=== PATIENT | female | born 1960 | race American Indian/Alaskan Native ===

== ENCOUNTER 2018-01-08 06:59 | Day surgery (SDC) | payer MEDICAID ==
[2018-01-08] VITALS (22 sets, daily range): BP systolic 87–131; BP diastolic 42–81
[~2018-01-08] VITALS: Ht 157.5 cm; Wt 101.5 kg
[2018-01-08] MEDS: normal saline 1000ml 1,000 ML IV SCH ×2 (07:30→13:07)
[2018-01-08] MEDS ORDERED: oxyCODONE IR 5mg (immed. release) tablet PO PRN (07:30)
[2018-01-08] MEDS ORDERED: normal saline 1000ml 1,000 ML IV SCH (07:30)
[2018-01-08] MEDS ORDERED: CYA500T SL (08:14)
[2018-01-08] MEDS ORDERED: SPIR25TA5 PO (08:14)
[2018-01-08] MEDS ORDERED: INSU100C4 SQ (08:14)
[2018-01-08] MEDS ORDERED: GABA-532 PO (08:14)
[2018-01-08] MEDS ORDERED: SITA25TA3 PO (08:14)
[2018-01-08] MEDS ORDERED: LISI10TA4 PO (08:14)
[2018-01-08] MEDS ORDERED: IPRA4AER IH (08:14)
[2018-01-08] MEDS ORDERED: AMIT-106 PO (08:14)
[2018-01-08] MEDS ORDERED: HYDR-4353 PO (08:14)
[2018-01-08] MEDS ORDERED: METF1000 PO (08:14)
[2018-01-08] MEDS ORDERED: DOCU100C41 PO (08:14)
[2018-01-08] MEDS ORDERED: INSU100I31 SQ (08:14)
[2018-01-08] MEDS ORDERED: EMPA10TA PO (08:14)
[2018-01-08] MEDS ORDERED: LIDOcaine 1% (10mg/ml)w/preservative injection 20ml MDV SQ ONE (08:20)
[2018-01-08] MEDS ORDERED: MIDAZolam 5mg/ml 2ml vial IV ONE (08:25)
[2018-01-08] MEDS ORDERED: fentaNYL/PF 50MCG/1 ML 2ML syringe IV ONE (08:25)
[2018-01-08 08:38] LABS: BASOPHILS % (AUTO) 0.4 % (0-1); EOSINOPHILS % (AUTO) 0.8 % (0-6); LYMPHOCYTES # (AUTO) 1.8 X10'3 (1.1-4.8); LYMPHOCYTES % (AUTO) 30.5 % (21-51); MEAN CORPUSCULAR HEMOGLOBIN 29.4 PG (27.0-31.0); MEAN CORPUSCULAR HGB CONC 32.4 % (33.0-36.5); MEAN CORPUSCULAR VOLUME 90.8 FL (78-98); MEAN PLATELET VOLUME 9.5 FL (7.4-10.4); MONOCYTES # (AUTO) 0.4 X10'3 (0-0.9); NEUTROPHILS # (AUTO) 3.7 X10'3 (1.8-7.7); NEUTROPHILS % (AUTO) 61.3 % (42-75); PRE OP HEMATOCRIT 44.1 % (35.0-45.0); PRE OP HEMOGLOBIN 14.3 g/dL (12.0-16.0); PRE OP PLATELET COUNT 146 X10'3 (140-440); RED BLOOD COUNT 4.85 X10'6 (4.20-5.60); RED CELL DISTRIBUTION WIDTH 14.6 % (11.5-14.5)
[2018-01-08 08:41] LABS: ALBUMIN 3.4 G/DL (3.4-5.0); ANION GAP 4 (8-16); BLOOD UREA NITROGEN 20 MG/DL (7-18); BUN/CREATININE RATIO 16.4 (6.6-38.0); CALCIUM 9.5 MG/DL (8.5-10.1); CHLORIDE 103 MMOL/L (99-107); CREATININE 1.22 MG/DL (0.40-0.90); GLUCOSE 121 MG/DL (70-104); POTASSIUM 4.7 MMOL/L (3.5-5.1); SODIUM 138 MMOL/L (135-145); TOTAL CARBON DIOXIDE 31.5 MMOL/L (24-32); eGFR 45 ML/MIN
[2018-01-08] MEDS ORDERED: gelatin sponge, absorbable (Gelfoam 12-7MM) sponge TP ONE (09:32)
== END 2018-01-08 14:05 | disposition home or self-care (01) ==
LOC: SSTAY O 06:59
PROVIDERS: ATTEND Radiology Diagnostic Radiology
DX: K76.89 Other specified diseases of liver (principal); E11.9 Type 2 diabetes mellitus without complications; I10 Essential (primary) hypertension; J44.9 Chronic obstructive pulmonary disease, unspecified; F10.21 Alcohol dependence, in remission; E66.9 Obesity, unspecified; F17.210 Nicotine dependence, cigarettes, uncomplicated; Z90.49 Acquired absence of other specified parts of digestive tract; Z68.41 Body mass index [BMI] 40.0-44.9, adult; Z86.19 Personal history of other infectious and parasitic diseases; Z88.2 Allergy status to sulfonamides; Z91.013 Allergy to seafood; Z96.641 Presence of right artificial hip joint; Z79.891 Long term (current) use of opiate analgesic; Z79.4 Long term (current) use of insulin; Z79.84 Long term (current) use of oral hypoglycemic drugs; Z79.899 Other long term (current) drug therapy; Z98.890 Other specified postprocedural states
CPT/HCPCS: 36415; 47000; 77012; 80048; 82948; 85025; 85610; J3010; J7030; J2001

== ENCOUNTER 2019-06-05 17:20 | Emergency (ER) | payer MEDICAID ==
[~2019-06-05] VITALS: Ht 160 cm; Wt 114.4 kg
[~2019-06-05 17:20] MED LIST: AMIT25TA9 PO; CYAN500T63 SL; DOCU100C41 PO; EMPA10TA PO; GABA-532 PO; HYDR-4353 PO; INSU100C4 SQ; INSU100I31 SQ; IPRA4AER IH; LISI10TA4 PO; METF1000 PO; SITA25TA3 PO; SPIR25TA5 PO
[2019-06-05 18:14] LABS: BASOPHILS % (AUTO) 0.6 % (0-1); EOSINOPHILS % (AUTO) 0.4 % (0-6); HEMATOCRIT 29.8 % (35.0-45.0); HEMOGLOBIN 9.9 g/dl (12.0-16.0); LYMPHOCYTES # (AUTO) 0.3 X10'3 (1.1-4.8); LYMPHOCYTES % (AUTO) 7.3 % (21-51); MEAN CORPUSCULAR HEMOGLOBIN 30.9 PG (27.0-31.0); MEAN CORPUSCULAR HGB CONC 33.2 g/dL (33.0-36.5); MEAN CORPUSCULAR VOLUME 92.8 FL (78-98); MEAN PLATELET VOLUME 8.8 FL (7.4-10.4); MONOCYTES # (AUTO) 0.4 X10'3 (0-0.9); MONOCYTES % (AUTO) 8.1 % (2-12); NEUTROPHILS # (AUTO) 3.9 X10'3 (1.8-7.7); NEUTROPHILS % (AUTO) 83.6 % (42-75); PLATELET COUNT 160 X10'3 (140-440); RED CELL DISTRIBUTION WIDTH 19.1 % (11.5-14.5); WHITE BLOOD COUNT 4.7 X10'3 (4.5-11.0)
[2019-06-05 18:28] LABS: ALANINE AMINOTRANSFERASE 34 U/L (12-78); ALBUMIN 2.1 G/DL (3.4-5.0); ALBUMIN/GLOBULIN RATIO 0.4 (1.1-1.5); ALKALINE PHOSPHATASE 214 IU/L (46-116); AMYLASE 37 U/L (25-115); ANION GAP 4 (8-16); ASPARTATE AMINO TRANSFERASE 119 U/L (10-37); BILIRUBIN,TOTAL 1.2 MG/DL (0.1-1.0); BLOOD UREA NITROGEN 21 MG/DL (7-18); BUN/CREATININE RATIO 17.2 (6.6-38.0); CALCIUM 8.8 MG/DL (8.5-10.1); CHLORIDE 102 MMOL/L (99-107); CREATININE 1.22 MG/DL (0.40-0.90); GLUCOSE 211 MG/DL (70-104); LIPASE 103 U/L (73-393); POTASSIUM 3.5 MMOL/L (3.5-5.1); SODIUM 137 MMOL/L (135-145); TOTAL CARBON DIOXIDE 30.9 MMOL/L (24-32); TOTAL PROTEIN 7.7 G/DL (6.4-8.2); eGFR 45 ML/MIN
[2019-06-05] MEDS ORDERED: furosemide 10 MG/1 ML 10ml inj IV ONE (20:20)
[2019-06-05] MEDS ORDERED: POTASSIUM BICARB 20meq eff tab 20 MEQ TABLET.EFF PO ONE (20:20)
[2019-06-05 20:27] LABS: ANISOCYTOSIS 2+; PLATELET ESTIMATE NORMAL
[2019-06-05 21:23] VITALS: BP 113/58
== END 2019-06-05 21:25 | disposition home or self-care (01) ==
LOC: ER 17:21
DX: K74.60 Unspecified cirrhosis of liver (principal); R18.8 Other ascites; E11.9 Type 2 diabetes mellitus without complications; F17.200 Nicotine dependence, unspecified, uncomplicated; Z90.49 Acquired absence of other specified parts of digestive tract; Z98.890 Other specified postprocedural states; Z72.89 Other problems related to lifestyle; Z86.19 Personal history of other infectious and parasitic diseases; Z88.2 Allergy status to sulfonamides; Z88.5 Allergy status to narcotic agent; Z79.4 Long term (current) use of insulin; Z79.899 Other long term (current) drug therapy; Z79.84 Long term (current) use of oral hypoglycemic drugs
CPT/HCPCS: 36415; 80053; 82150; 83690; 85025; 96374; 99283; J1940

== ENCOUNTER 2019-06-13 07:22 | Day surgery (SDC) | payer MEDICAID ==
[~2019-06-13] VITALS: Ht 157.5 cm; Wt 115.4 kg
[2019-06-13 07:45] VITALS: BP 129/77
[2019-06-13] MEDS ORDERED: normal saline 1000ml 1,000 ML IV PRN (07:45)
[2019-06-13] MEDS ORDERED: albumin 25% 100mL bottle x 1 IV PRN (07:45)
[2019-06-13] MEDS ORDERED: MORP15TA PO (08:00)
--- NOTE | 2019-06-13 09:29 | NUR ---
US done by Sterling Salmeron, NOA. Inadequate amount of fluid present to perform paracentesis. Pt educated on importance of performing daily weights and taking medication as prescribed by PCP. Pt instructed to contact PCP with worsening symptoms. All pt belongings gathered up, including backpack, purse, cane and cellphone. Pt transported by daughter via personal wheelchair to private vehicle.
== END 2019-06-13 09:15 | disposition home or self-care (01) ==
LOC: SSTAY O 07:22
PROVIDERS: ATTEND Radiology Vascular & Interventional Radiology
DX: R18.8 Other ascites (principal); E11.9 Type 2 diabetes mellitus without complications; I10 Essential (primary) hypertension; J44.9 Chronic obstructive pulmonary disease, unspecified; Z88.6 Allergy status to analgesic agent; Z88.2 Allergy status to sulfonamides; Z79.899 Other long term (current) drug therapy; Z79.4 Long term (current) use of insulin
CPT/HCPCS: 49083; 76705

== ENCOUNTER 2019-06-25 13:54 | Inpatient (IN) | payer MEDICAID ==
[~2019-06-25] VITALS: Ht 157.5 cm; Wt 106.2 kg
[~2019-06-25 13:54] MED LIST changes: -DOCU100C41 PO; -LISI10TA4 PO; -METF1000 PO; +MORP15TA PO; -SITA25TA3 PO
--- NOTE | 2019-06-25 14:09 | NUR ---
PT PLACED ON NASAL CANNULA 2 LITERS 02, PULSE OX INCREASED FROM 89% TO 99%, PROVIDER AT BEDSIDE TO EVAL PT
--- NOTE | 2019-06-25 14:28 | NUR ---
spoke to patients daughter rhona. pt has traveled to [place] in the last month. she finished her antibiotics for bronchitis. family noticed a decline in patients aloc over the last 2 days. she has had ongoing sob but stated it worsened over the last few days after they notied sats in the 70's. pt is currently taking chemo medications for liver cancer. daughters phone number [phone]
[2019-06-25 15:20] LABS: CLARITY,URINE CLEAR (Clear); COLOR,URINE STRAW (Yellow); GLUCOSE, URINE 500 mg/dl (Neg); KETONES,URINE NEGATIVE (Neg); LEUKOCYTE ESTERASE ,URINE NEGATIVE (Neg); NITRITES, URINE NEGATIVE (Neg); OCCULT BLOOD,URINE NEGATIVE (Neg); PROTEIN,URINE NEGATIVE (Neg); UROBILINOGEN,URINE 0.2 E.U/dL (0.2-1.0)
[2019-06-25 15:22] LABS: UA COLLECTION TYPE URINAL
[2019-06-25] MEDS ORDERED: furosemide 10 MG/1 ML 10ml inj IV ONE (15:30)
[2019-06-25] MEDS ORDERED: lactulose 20gm/30ml cup PO ONE (15:30)
[2019-06-25 15:32] LABS: BASOPHILS % (AUTO) 0.3 % (0-1); EOSINOPHILS % (AUTO) 0.2 % (0-6); HEMATOCRIT 40.1 % (35.0-45.0); HEMOGLOBIN 12.8 g/dl (12.0-16.0); LYMPHOCYTES # (AUTO) 0.4 X10'3 (1.1-4.8); LYMPHOCYTES % (AUTO) 4.6 % (21-51); MEAN CORPUSCULAR HEMOGLOBIN 29.9 PG (27.0-31.0); MEAN CORPUSCULAR VOLUME 93.4 FL (78-98); MEAN PLATELET VOLUME 8.4 FL (7.4-10.4); MONOCYTES # (AUTO) 0.4 X10'3 (0-0.9); NEUTROPHILS # (AUTO) 6.9 X10'3 (1.8-7.7); NEUTROPHILS % (AUTO) 89.9 % (42-75); PLATELET COUNT 135 X10'3 (140-440); RED BLOOD COUNT 4.29 X10'6 (4.20-5.60); RED CELL DISTRIBUTION WIDTH 19.6 % (11.5-14.5); WHITE BLOOD COUNT 7.7 X10'3 (4.5-11.0)
[2019-06-25] MEDS ORDERED: piperacillin/tazo 3.375gm/50ml 50 ML IV ONE (15:40)
[2019-06-25 15:58] LABS: ALANINE AMINOTRANSFERASE 70 U/L (12-78); ALBUMIN 2.1 G/DL (3.4-5.0); ALBUMIN/GLOBULIN RATIO 0.3 (1.1-1.5); ALKALINE PHOSPHATASE 244 IU/L (46-116); ANION GAP 6 (8-16); ASPARTATE AMINO TRANSFERASE 234 U/L (10-37); BILIRUBIN,TOTAL 2.5 MG/DL (0.1-1.0); BLOOD UREA NITROGEN 33 MG/DL (7-18); BUN/CREATININE RATIO 28.7 (6.6-38.0); CALCIUM 9.7 MG/DL (8.5-10.1); CHLORIDE 98 MMOL/L (99-107); CREATININE 1.15 MG/DL (0.40-0.90); GLUCOSE 169 MG/DL (70-104); MAGNESIUM 1.8 MG/DL (1.5-2.4); POTASSIUM 4.2 MMOL/L (3.5-5.1); SODIUM 138 MMOL/L (135-145); TOTAL PROTEIN 8.7 G/DL (6.4-8.2); eGFR 48 ML/MIN
[2019-06-25] MEDS ORDERED: normal saline 1000ml 1,000 ML IV ONE (16:05)
[2019-06-25] MEDS ORDERED: CHOL10005 PO (16:30)
[2019-06-25] MEDS ORDERED: FURO-149 PO (16:30)
[2019-06-25] MEDS ORDERED: LIRA0.6P SQ (16:30)
[2019-06-25] MEDS ORDERED: normal saline 1000ML IV soln IV ONE (16:35)
[2019-06-25] MEDS ORDERED: glucagon, human recombinant 1mg kit SUBCUT PRN (17:00)
[2019-06-25] MEDS ORDERED: MESSAGE TO PHARMACY PO ONE (17:00)
[2019-06-25] MEDS ORDERED: dextrose 50%-water 50ml dispensing syringe IV PRN ×2 (17:00)
[2019-06-25] MEDS ORDERED: mag hydrox/Alum hydrox/simeth 30ml oral suspension PO PRN (17:00)
[2019-06-25] MEDS ORDERED: potassium CL 10mEq/100ml bag 100 ML IV PRN ×2 (17:00)
[2019-06-25] MEDS ORDERED: potassium Cl 20 mEq SR tablet PO PRN ×2 (17:00)
[2019-06-25] MEDS ORDERED: magnesium 4gm in 100ml NS 100 ML IV PRN (17:00)
[2019-06-25] MEDS ORDERED: acetaminophen 325mg tablet PO PRN (17:00)
[2019-06-25] MEDS ORDERED: dextrose ORAL solution 15 GM/59 ML bottle PO PRN ×2 (17:00)
[2019-06-25] MEDS ORDERED: magnesium hydroxide 30ml (MOM) UD suspension PO PRN (17:00)
[2019-06-25] MEDS ORDERED: magnesium 2GM in 50ml NS 50 ML IV PRN (17:00)
[2019-06-25] MEDS ORDERED: insulin Lispro (HumaLOG) vial - multi-dose SQ SCH (17:00)
[2019-06-25 17:26] LABS: HEMOGLOBIN A1C 6.7 % (4.5-6.2)
[2019-06-25] MEDS: K and/or MAG REPLACEMENT MC SCH (20:00)
--- NOTE | 2019-06-25 20:12 | NUR ---
PT HAD LARGE LOOSE BM SOAKED WITH URINE THAT CAME OUT HER DEPEND. FULL LINEN CHANGE AND PATIENT WAS CLEANSED VERY THOROUGHLY. NEW GOWN AND 2 WARMED BLANKETS APPLIED TO HER, PT NOW ON A DRY FLOW WITHOUT DEPENDS.
--- NOTE | 2019-06-25 20:55 | NUR ---
Received report from [employer] Repairer. Pt brought to room 346A, transferred to bed via slide board with assist x4. Pt very soft spoken, states very weak. alert, to self, knows in hospital, but forgets date and place. pt states has been getting very week last two weeks, and feels like she sometimes has body spasm with arms and legs. follows all commands. bed alarm on Addendum: 06/25/19 at 2218 by Rekha Bernal RN Amended: Links added.
--- NOTE | 2019-06-25 22:21 | NUR ---
washed down back, under breasts, abd, back, kavita area and thighs with warm bath wipes, declines oral care at this time. Addendum: 06/25/19 at 2222 by Rekha Bernal RN Amended: Links added.
[2019-06-25] MEDS: insulin glargine (Lantus) pen - multi-dose SQ SCH (22:22)
[2019-06-25 22:39] VITALS: BP 132/62
[2019-06-25] MEDS: spironolactone 25 MG tablet PO SCH (22:46)
[2019-06-26] MEDS: piperacillin/tazo 3.375gm/50ml 50 ML IV SCH ×3 (00:24→17:43)
[2019-06-26] MEDS: ondansetron/PF 4mg/2ml inj IV PRN ×2 (00:34→13:19)
--- NOTE | 2019-06-26 01:19 | NUR ---
social issues unknown at this time. pt not answering all questions. Addendum: 06/26/19 at 0119 by Rekha Bernal RN Amended: Links added.
--- NOTE | 2019-06-26 02:01 | NUR ---
SURVIVAL SKILLS GIVEN TO PT NEED FURTHER EDUCATION, PT CONFUSED AT THIS TIME. Addendum: 06/26/19 at 0201 by Rekha Bernal RN Amended: Links added.
--- NOTE | 2019-06-26 02:04 | NUR ---
PT UNABLE TO ANSWER QUESTIONS AT THIS TIME. Addendum: 06/26/19 at 0205 by eRkha Bernal RN Amended: Links added.
[2019-06-26 05:54] LABS: BASOPHILS % (AUTO) 0.1 % (0-1); EOSINOPHILS % (AUTO) 0.4 % (0-6); HEMATOCRIT 35.9 % (35.0-45.0); HEMOGLOBIN 11.5 g/dl (12.0-16.0); LYMPHOCYTES # (AUTO) 0.2 X10'3 (1.1-4.8); LYMPHOCYTES % (AUTO) 3.7 % (21-51); MEAN CORPUSCULAR HEMOGLOBIN 29.9 PG (27.0-31.0); MEAN CORPUSCULAR HGB CONC 32.1 g/dL (33.0-36.5); MEAN PLATELET VOLUME 8.5 FL (7.4-10.4); MONOCYTES # (AUTO) 0.3 X10'3 (0-0.9); MONOCYTES % (AUTO) 5.2 % (2-12); NEUTROPHILS # (AUTO) 5.3 X10'3 (1.8-7.7); NEUTROPHILS % (AUTO) 90.6 % (42-75); PLATELET COUNT 111 X10'3 (140-440); RED BLOOD COUNT 3.86 X10'6 (4.20-5.60); RED CELL DISTRIBUTION WIDTH 19.6 % (11.5-14.5); WHITE BLOOD COUNT 5.9 X10'3 (4.5-11.0)
--- NOTE | 2019-06-26 05:56 | NUR ---
pt was trying to climb out of bed, states wants to go home, pt alert, remains confused to place and time. reoriented, states wants to call family this morning. pt states needs to "go to the bathroom" placed on bedpan. Bed alarm on, fall risk arm band on, pt had socks with terrazzo supervisor on earlier, but refuses to wear and kicks off with feet. Addendum: 06/26/19 at 0559 by Rekha Bernal RN Amended: Links added.
[2019-06-26 06:15] LABS: ALANINE AMINOTRANSFERASE 62 U/L (12-78); ALBUMIN 1.8 G/DL (3.4-5.0); ALBUMIN/GLOBULIN RATIO 0.3 (1.1-1.5); ALKALINE PHOSPHATASE 212 IU/L (46-116); ANION GAP 4 (8-16); ASPARTATE AMINO TRANSFERASE 205 U/L (10-37); BILIRUBIN,TOTAL 2.3 MG/DL (0.1-1.0); BLOOD UREA NITROGEN 33 MG/DL (7-18); BUN/CREATININE RATIO 31.7 (6.6-38.0); CALCIUM 9.1 MG/DL (8.5-10.1); CHLORIDE 103 MMOL/L (99-107); CREATININE 1.04 MG/DL (0.40-0.90); GLUCOSE 155 MG/DL (70-104); MAGNESIUM 1.7 MG/DL (1.5-2.4); POTASSIUM 4.1 MMOL/L (3.5-5.1); SODIUM 140 MMOL/L (135-145); TOTAL CARBON DIOXIDE 32.6 MMOL/L (24-32); TOTAL PROTEIN 7.5 G/DL (6.4-8.2); eGFR 54 ML/MIN
--- NOTE | 2019-06-26 06:46 | NUR ---
Problems reprioritized. Patient report given, questions answered & plan of care reviewed with ROSENDO LION. Addendum: 06/26/19 at 0646 by Rekha Bernal RN Amended: Links added.
[2019-06-26 07:43] VITALS: BP 124/40
[2019-06-26] MEDS: K and/or MAG REPLACEMENT MC SCH ×2 (08:00→20:00)
[2019-06-26 09:00] LABS: ANISOCYTOSIS 2+; PLATELET ESTIMATE DECREASED
[2019-06-26 09:03] LABS: HYPOCHROMASIA 1+
[2019-06-26] MEDS: cyanocobalamin 500mcg tablet PO SCH (09:36)
[2019-06-26] MEDS: spironolactone 25 MG tablet PO SCH ×2 (09:37→20:30)
[2019-06-26] MEDS: furosemide 40mg tablet PO SCH (09:37)
[2019-06-26 13:05] VITALS: BP 147/64
[2019-06-26] MEDS ORDERED: predniSONE 20 mg tablet PO ONE (13:15)
[2019-06-26] MEDS: HYDROcodone/acetaminophen 10/325mg tab PO PRN (13:19)
[2019-06-26] MEDS: ipratropium/albuterol 3ml nebule NEB SCH ×2 (14:10→20:15)
[2019-06-26 18:00] VITALS: BP 139/69
--- NOTE | 2019-06-26 18:20 | NUR ---
Problems reprioritized. Patient report given, questions answered & plan of care reviewed with Prudence RN.
[2019-06-26] MEDS: lactobacillus rhamnosus 10,000 MMU CELLS/CAPSULE PO SCH (20:30)
[2019-06-26] MEDS: insulin glargine (Lantus) pen - multi-dose SQ SCH (21:00)
[2019-06-27] VITALS: BP 134/50
[2019-06-27] MEDS: piperacillin/tazo 3.375gm/50ml 50 ML IV SCH ×2 (00:07→08:17)
[2019-06-27 06:10] LABS: BASOPHILS % (AUTO) 0.1 % (0-1); EOSINOPHILS % (AUTO) 0.7 % (0-6); HEMATOCRIT 37.7 % (35.0-45.0); LYMPHOCYTES # (AUTO) 0.2 X10'3 (1.1-4.8); LYMPHOCYTES % (AUTO) 3.9 % (21-51); MEAN CORPUSCULAR HGB CONC 31.8 g/dL (33.0-36.5); MEAN CORPUSCULAR VOLUME 94.2 FL (78-98); MEAN PLATELET VOLUME 8.4 FL (7.4-10.4); MONOCYTES # (AUTO) 0.4 X10'3 (0-0.9); MONOCYTES % (AUTO) 6.9 % (2-12); NEUTROPHILS # (AUTO) 5.5 X10'3 (1.8-7.7); NEUTROPHILS % (AUTO) 88.4 % (42-75); PLATELET COUNT 119 X10'3 (140-440); RED CELL DISTRIBUTION WIDTH 19.9 % (11.5-14.5); WHITE BLOOD COUNT 6.2 X10'3 (4.5-11.0)
--- NOTE | 2019-06-27 06:31 | NUR ---
Problems reprioritized. Patient report given, questions answered & plan of care reviewed with YAYA ROBBINS.
[2019-06-27 06:47] LABS: ANION GAP 2 (8-16); BLOOD UREA NITROGEN 45 MG/DL (7-18); BUN/CREATININE RATIO 35.4 (6.6-38.0); CHLORIDE 100 MMOL/L (99-107); CREATININE 1.27 MG/DL (0.40-0.90); GLUCOSE 145 MG/DL (70-104); SODIUM 138 MMOL/L (135-145); TOTAL CARBON DIOXIDE 35.6 MMOL/L (24-32)
[2019-06-27 06:48] LABS: ALANINE AMINOTRANSFERASE 191 U/L (12-78); ALBUMIN/GLOBULIN RATIO 0.3 (1.1-1.5); ALKALINE PHOSPHATASE 240 IU/L (46-116); BILIRUBIN,TOTAL 2.6 MG/DL (0.1-1.0); CALCIUM 8.8 MG/DL (8.5-10.1); MAGNESIUM 1.8 MG/DL (1.5-2.4); eGFR 43 ML/MIN
[2019-06-27 06:49] LABS: ASPARTATE AMINO TRANSFERASE 1393 U/L (10-37)
[2019-06-27 07:22] VITALS: BP 124/36
[2019-06-27 07:26] LABS: HYPOCHROMASIA 1+; PLATELET ESTIMATE DECREASED; POLYCHROMASIA 1+
[2019-06-27] MEDS: ipratropium/albuterol 3ml nebule NEB SCH (07:26)
[2019-06-27 07:27] LABS: ANISOCYTOSIS 2+; STOMATOCYTES 1+
[2019-06-27] MEDS: K and/or MAG REPLACEMENT MC SCH (08:00)
[2019-06-27] MEDS: lactobacillus rhamnosus 10,000 MMU CELLS/CAPSULE PO SCH (08:18)
[2019-06-27] MEDS: furosemide 40mg tablet PO SCH (08:18)
[2019-06-27] MEDS: spironolactone 25 MG tablet PO SCH (08:19)
[2019-06-27] MEDS: cyanocobalamin 500mcg tablet PO SCH (08:19)
[2019-06-27] MEDS: HYDROcodone/acetaminophen 10/325mg tab PO PRN (08:25)
[2019-06-27] MEDS ORDERED: predniSONE 20 mg tablet PO SCH (08:30)
[2019-06-27] MEDS ORDERED: HYDROcodone/acetaminophen 10/325mg tab PO PRN (08:30)
[2019-06-27] MEDS ORDERED: FURO40TA4 PO (10:31)
--- NOTE | 2019-06-27 13:40 | NUR ---
patient states that she understands all discharge instructions and will follow up as directed. IV was removed with canula intact. All belongings present on discharge. Patient safely wheeled in personal wheelchair to daughters vehicle and safely helped inside.
[2019-06-28] MEDS ORDERED: furosemide 40mg tablet PO SCH (08:00)
== END 2019-06-27 13:40 | disposition home health service (06) | DRG 720 ==
LOC: ER 13:55 → ED HOLD 16:56 → SUR 3N 20:55
PROVIDERS: ADMIT Family Medicine; ATTEND Family Medicine
PROC: 0W9G3ZZ Drainage of Peritoneal Cavity, Percutaneous Approach (ICD-10-PCS; principal; 2019-06-26)
DX: A41.9 Sepsis, unspecified organism (principal); G93.41 Metabolic encephalopathy; K65.2 Spontaneous bacterial peritonitis; C22.0 Liver cell carcinoma; E87.2 Acidosis; E11.22 Type 2 diabetes mellitus with diabetic chronic kidney disease; K70.31 Alcoholic cirrhosis of liver with ascites; N18.3 Chronic kidney disease, stage 3 (moderate); F17.210 Nicotine dependence, cigarettes, uncomplicated; E11.65 Type 2 diabetes mellitus with hyperglycemia; B19.20 Unspecified viral hepatitis C without hepatic coma; F10.20 Alcohol dependence, uncomplicated; Z79.4 Long term (current) use of insulin; Z99.3 Dependence on wheelchair; Z88.1 Allergy status to other antibiotic agents; Z91.013 Allergy to seafood; Z80.0 Family history of malignant neoplasm of digestive organs; Z90.49 Acquired absence of other specified parts of digestive tract
CPT/HCPCS: 36415; 70450; 71045; 74176; 76705; 80053; 81003; 82140; 82948; 83036; 83605; 83735; 84145; 85025; 85610; 87040; 87081; 92508; 92616; 93005; 94640; 94760; 97110; 97112; 97116; 97161; 97530; 99285; G0378; J1815; J1940; J2405; J2543; J7030; J7512

== ENCOUNTER 2019-06-28 07:25 | Emergency (ER) | payer MEDICAID ==
[~2019-06-28] VITALS: Ht 157.5 cm; Wt 111.4 kg
[~2019-06-28 07:25] MED LIST changes: +CHOL10005 PO; +FURO-149 PO; +FURO40TA4 PO; +LIRA0.6P SQ
--- NOTE | 2019-06-28 07:49 | NUR ---
PT'S DAUGHTER; KARLA NOLAND, CALLED TO PROVIDE ADDITIONAL INFORMATION REGARDING PT'S HEALTH HX. HX: LIVER CA, DIABETIC, GI BLEEDS PT HAD A PARACENTESIS ON 06/27/2019 DAUGHTER STATES THAT SHE HAS DURABLE [employer] FOR HEALTH CARE AND CAN BE REACHED AT PT HAS GIVEN PERMISSION TO GIVE HER DAUGHTER INFORMATION REGARDING HER STATUS.
[2019-06-28] MEDS ORDERED: normal saline 1000ml 1,000 ML IV ONE (08:56)
[2019-06-28 09:49] LABS: BASOPHILS % (AUTO) 0.2 % (0-1); EOSINOPHILS % (AUTO) 0 % (0-6); HEMATOCRIT 30.9 % (35.0-45.0); HEMOGLOBIN 9.8 g/dl (12.0-16.0); LYMPHOCYTES # (AUTO) 0.3 X10'3 (1.1-4.8); LYMPHOCYTES % (AUTO) 3.6 % (21-51); MEAN CORPUSCULAR HEMOGLOBIN 29.8 PG (27.0-31.0); MEAN CORPUSCULAR HGB CONC 31.7 g/dL (33.0-36.5); MEAN PLATELET VOLUME 8.8 FL (7.4-10.4); MONOCYTES # (AUTO) 0.7 X10'3 (0-0.9); NEUTROPHILS # (AUTO) 8.1 X10'3 (1.8-7.7); NEUTROPHILS % (AUTO) 88.2 % (42-75); PLATELET COUNT 166 X10'3 (140-440); RED BLOOD COUNT 3.29 X10'6 (4.20-5.60); RED CELL DISTRIBUTION WIDTH 19.9 % (11.5-14.5); WHITE BLOOD COUNT 9.2 X10'3 (4.5-11.0)
[2019-06-28 10:06] LABS: ALANINE AMINOTRANSFERASE 231 U/L (12-78); ALBUMIN 1.8 G/DL (3.4-5.0); ALBUMIN/GLOBULIN RATIO 0.3 (1.1-1.5); ALKALINE PHOSPHATASE 254 IU/L (46-116); ANION GAP 7 (8-16); ASPARTATE AMINO TRANSFERASE 1384 U/L (10-37); BILIRUBIN,TOTAL 3.6 MG/DL (0.1-1.0); BLOOD UREA NITROGEN 62 MG/DL (7-18); BUN/CREATININE RATIO 39.5 (6.6-38.0); CALCIUM 8.8 MG/DL (8.5-10.1); CHLORIDE 98 MMOL/L (99-107); CREATININE 1.57 MG/DL (0.40-0.90); GLUCOSE 158 MG/DL (70-104); LIPASE 193 U/L (73-393); SODIUM 136 MMOL/L (135-145); TOTAL CARBON DIOXIDE 30.8 MMOL/L (24-32); TOTAL PROTEIN 7.4 G/DL (6.4-8.2); eGFR 34 ML/MIN
[2019-06-28 10:19] LABS: NUCLEATED RED BLOOD CELLS 1 /100WBC (0-0); PLATELET ESTIMATE NORMAL; TOTAL CELLS COUNTED 100
[2019-06-28 10:22] LABS: ANISOCYTOSIS 2+; POLYCHROMASIA 1+; STOMATOCYTES 2+; TARGET CELLS 1+
[2019-06-28] MEDS ORDERED: morphine 4 MG/ML inj SYRINge IV ONE (10:40)
[2019-06-28] MEDS ORDERED: metoclopramide 5 mg/ml inj IV ONE (10:40)
[2019-06-28] MEDS ORDERED: pantoprazole 40 MG vial IV ONE ×3 (12:20→12:30)
--- NOTE | 2019-06-28 12:50 | NUR ---
DR. RODRIGUEZ, [facility] HAS RETURNED THE CALL.
--- NOTE | 2019-06-28 14:30 | NUR ---
[facility] Transfer center called and asked for more information on the patient. Case management from [facility] is involved in the transfer.
[2019-06-28 15:28] LABS: BASOPHILS # (AUTO) 0.1 X10'3 (0-0.2); EOSINOPHILS % (AUTO) 0 % (0-6); HEMATOCRIT 29.9 % (35.0-45.0); HEMOGLOBIN 9.3 g/dl (12.0-16.0); LYMPHOCYTES # (AUTO) 0.5 X10'3 (1.1-4.8); LYMPHOCYTES % (AUTO) 5.2 % (21-51); MEAN CORPUSCULAR HEMOGLOBIN 29.8 PG (27.0-31.0); MEAN CORPUSCULAR HGB CONC 31.1 g/dL (33.0-36.5); MEAN CORPUSCULAR VOLUME 95.7 FL (78-98); MEAN PLATELET VOLUME 9.8 FL (7.4-10.4); MONOCYTES # (AUTO) 0.7 X10'3 (0-0.9); NEUTROPHILS # (AUTO) 9.1 X10'3 (1.8-7.7); NEUTROPHILS % (AUTO) 86.8 % (42-75); PLATELET COUNT 208 X10'3 (140-440); RED BLOOD COUNT 3.12 X10'6 (4.20-5.60); RED CELL DISTRIBUTION WIDTH 19.9 % (11.5-14.5); WHITE BLOOD COUNT 10.5 X10'3 (4.5-11.0)
[2019-06-28 15:29] VITALS: BP 157/94
--- NOTE | 2019-06-28 15:42 | NUR ---
PT HAS A BED AT [facility] [address] RM 1405 . [facility] CALLED FOR TRANSPORT, AWAITING APPROVAL FROM [employer].
[2019-06-28 15:56] LABS: ALANINE AMINOTRANSFERASE 280 U/L (12-78); ALBUMIN 1.9 G/DL (3.4-5.0); ALBUMIN/GLOBULIN RATIO 0.3 (1.1-1.5); ALKALINE PHOSPHATASE 262 IU/L (46-116); ASPARTATE AMINO TRANSFERASE 1685 U/L (10-37); BILIRUBIN,DIRECT 3.3 MG/DL (0-0.3); TOTAL PROTEIN 7.6 G/DL (6.4-8.2)
--- NOTE | 2019-06-28 17:49 | NUR ---
Patient being picked up by [facility]. Report given to both EMS and [facility] (Anisa Branch RN)
== END 2019-06-28 18:03 | disposition short-term general hospital (02) ==
LOC: ER 07:25
DX: C22.9 Malignant neoplasm of liver, not specified as primary or secondary (principal); K92.2 Gastrointestinal hemorrhage, unspecified; R17 Unspecified jaundice; R74.0 Nonspecific elevation of levels of transaminase and lactic acid dehydrogenase [LDH]; E11.9 Type 2 diabetes mellitus without complications; F17.200 Nicotine dependence, unspecified, uncomplicated; Z86.19 Personal history of other infectious and parasitic diseases; Z90.49 Acquired absence of other specified parts of digestive tract; Z88.2 Allergy status to sulfonamides; Z88.5 Allergy status to narcotic agent; Z91.013 Allergy to seafood; Z79.899 Other long term (current) drug therapy
CPT/HCPCS: 36415; 76700; 80053; 80076; 83690; 85025; 85610; 93975; 99285; C9113; J2270; J2765; J7030